=== PATIENT | female | born 1955 | race Caucasian/White ===

== ENCOUNTER → 2021-04-15 | Outpatient (CLI) | payer BC, MEDICARE ==
[2021-04-15 14:08] LABS: African American GFR (CKD) >90 (>60 ml/min/1.73 sqM); Blood Urea Nitrogen 21 mg/dL (7-17); Non-African American GFR(CKD) 88 (>60 ml/min/1.73 sqM)
--- NOTE | 2021-04-15 14:45 | CT ---
EXAMINATION TYPE: CT chest w con DATE OF EXAM: 04/15/2021 COMPARISON: NONE HISTORY: Abnormal lung field. CT DLP: 278.7 mGycm. Automated Exposure Control for Dose Reduction was Utilized. TECHNIQUE: CT scan of the thorax is performed following with IV Contrast, patient injected with 100m l mL of Isovue 300. FINDINGS: LUNGS: Slightly elevated left hemidiaphragm. The lungs are grossly clear, there is no concerning pare nchymal mass or nodule identified. There is no pleural effusion or pneumothorax seen. The tracheob ronchial tree is patent. MEDIASTINUM: There are no greater than 1 cm hilar or mediastinal lymph nodes. No pericardial effusi on is seen. Mild cardiomegaly. Heterogeneous thyroid. Enlarged left thyroid lobe with substernal ext ension. Ascending aortic aneurysm up to 4.1 cm in diameter. There is right-sided arch and descending thoracic aorta with slight tortuous course becoming more midline near diaphragmatic hiatus. This runs posterior to esophagus causing anterior tracheal shift with right brachiocephalic artery, right comm on carotid artery, and left brachiocephalic arteries originating from the posterior arch. Mild to mod erate right ventricular dilatation. OTHER: Prominent spleen partially imaged. Left-sided stomach bubble. Thin-walled cyst or cystic lesio n in the left retroperitoneum likely reflects exophytic thin-walled cyst from multiple left kidney. S ome lobulated contour to liver noted. No intra-abdominal ascites. Calcified splenic artery. Slight sc oliotic curvature. Exaggerated kyphosis. Mild to moderate multilevel spurring. IMPRESSION: No significant acute or chronic pulmonary process. Normal variant with right sided arch a s detailed above. Splenomegaly partially imaged. Left-sided thyroid goiter.
== END | disposition home or self-care (01) ==
LOC: RADCTMAIN 13:24
PROVIDERS: ATTEND Family Medicine
DX: R91.8 Other nonspecific abnormal finding of lung field (principal); E04.9 Nontoxic goiter, unspecified; R16.1 Splenomegaly, not elsewhere classified
CPT/HCPCS: 82565; 84520; 71260; 36415; Q9967